=== PATIENT | female | born 1935 | race Two or more races ===

== ENCOUNTER → 2023-05-08 11:18 | Outpatient (REF) | payer MEDICARE, OTHER, SELFPAY ==
[2023-05-08 12:18] LABS: HDL Cholesterol 26 mg/dl; LDL Cholesterol, Calculated 61 mg/dl; Total Cholesterol 123 mg/dl (50-199); Triglyceride 181 mg/dl (10-149); Very Low Density Lipoprotein 36 mg/dl (0-30)
== END ==
LOC: OLABN 11:18
PROVIDERS: ATTENDING PHYSICIAN Student in an Organized Health Care Education/Training Program
DX: E78.5 Hyperlipidemia, unspecified (principal)
CPT/HCPCS: 36415; 80061

== ENCOUNTER → 2023-06-25 11:32 | Outpatient (REF) | payer MEDICARE, OTHER, SELFPAY ==
[2023-06-25 13:01] LABS: Hematocrit 37.3 % (37.0-47.0); Hemoglobin 11.7 g/dL (12.0-16.0); Mean Corp Hgb Conc. 31.4 g/dL (33.0-37.0); Mean Corpuscular Hgb 29.5 pg (27.0-31.0); Mean Platelet Volume 12.1 fL (7.4-10.4); Platelet Count 256 10^3/uL (130-400); Red Blood Cell Count 3.97 10^6/uL (4.20-5.40); Red Cell Dist. Width 15.2 % (11.5-14.5); White Blood Cell Count 7.4 10^3/uL (4.8-10.8)
[2023-06-25 13:39] LABS: Blood Urea Nitrogen 24 mg/dl (7-17); Calcium 8.7 mg/dl (8.4-10.2); Carbon Dioxide 18 mmol/L (22-30); Chloride 112 mmol/L (98-107); Glucose 93 mg/dl (70-99); Potassium 3.5 mmol/L (3.5-5.1); Sodium 140 mmol/L (135-145); eGFR > 60.00
== END ==
LOC: OLABN 11:32
PROVIDERS: ATTENDING PHYSICIAN Student in an Organized Health Care Education/Training Program
DX: I10 Essential (primary) hypertension (principal)
CPT/HCPCS: 36415; 80048; 85027

== ENCOUNTER → 2023-06-28 10:31 | Outpatient (REF) | payer MEDICARE, OTHER, SELFPAY ==
[2023-06-28 11:32] LABS: % Basophils 0.6 % (0-2); % Immature Granulocytes 1.4 % (0-0.5); % Lymphocytes 7.1 % (20.5-51.1); % Monocytes 5.8 % (1.7-9.3); % Neutrophils 85.1 % (42.2-75.2); Absolute Basophils 0.1 10^3/uL (0-0.2); Absolute Immature Granulocytes 0.2 10^3/uL (0-0.05); Absolute Monocytes 0.8 10^3/uL (0.1-0.6); Absolute Neutrophils 11.8 10^3/uL (1.4-6.5); Hematocrit 33.2 % (37.0-47.0); Hemoglobin 11.2 g/dL (12.0-16.0); Mean Corp Hgb Conc. 33.7 g/dL (33.0-37.0); Mean Corpuscular Hgb 29.5 pg (27.0-31.0); Mean Corpuscular Volume 87.4 fL (81.0-99.0); Mean Platelet Volume 12.8 fL (7.4-10.4); Nucleated Red Blood Cells % 0 %; Platelet Count 309 10^3/uL (130-400); Red Cell Dist. Width 15.2 % (11.5-14.5); White Blood Cell Count 13.9 10^3/uL (4.8-10.8)
== END ==
LOC: OLABN 10:31
PROVIDERS: ATTENDING PHYSICIAN Student in an Organized Health Care Education/Training Program
DX: R50.9 Fever, unspecified (principal)
CPT/HCPCS: 36415; 85025; 87040

== ENCOUNTER → 2023-06-29 09:37 | Outpatient (REF) | payer MEDICARE, OTHER, SELFPAY ==
[2023-06-29 11:33] LABS: Blood Urea Nitrogen 35 mg/dl (7-17); Calcium 8.8 mg/dl (8.4-10.2); Carbon Dioxide 21 mmol/L (22-30); Chloride 110 mmol/L (98-107); Glucose 100 mg/dl (70-99); Potassium 3.7 mmol/L (3.5-5.1); Sodium 142 mmol/L (135-145); eGFR 48.33
== END ==
LOC: OLABN 09:37
PROVIDERS: ATTENDING PHYSICIAN Student in an Organized Health Care Education/Training Program
DX: R50.9 Fever, unspecified (principal)
CPT/HCPCS: 36415; 80048